=== PATIENT | male | born 1950 | race Caucasian/White ===

== ENCOUNTER 2022-04-29 11:02 | Emergency (ER) | payer MEDICARE, SELFPAY ==
--- NOTE | ~2022-04-29 | XR_ITS ---
XR chest 2V DATE: 04/29/2022 12:15 INDICATION: Cough for 8 weeks TECHNIQUE: 2 views COMPARISON: None FINDINGS: Mild cardiomegaly. Aortic arch calcification. No hilar or mediastinal enlargement. No pulmo nary infiltrate or consolidation. No pulmonary vascular congestion, pleural effusion or pneumothorax. Minimal loss of height and anterior wedging at T12, chronic. Degenerative spurring of the thoracic sp ine. Diffuse osteopenia. IMPRESSION: Mild cardiomegaly. Aortic atherosclerosis No active pulmonary disease Reviewed, dictated and finalized at location [facility]. [facility]
[2022-04-29 11:18] VITALS: BP 121/71; PULSE 68; RESP 16; TEMP 36.4; O2SAT 99
--- NOTE | 2022-04-29 12:35 | ED.URI ---
HPI - URI/Sore Throat General Chief Complaint: Upper Respiratory Infection Stated Complaint: cough Source: patient Limitations: no limitations History of Present Illness HPI Narrative: 71-year-old male presents to [facility] with complaints of barky like cough for the past 8-10 weeks. Patient reports that he is currently taking ciprofloxacin 500 mg twice a day per his primary care provider for urinary symptoms. Patient denies shortness of breath or wheezing. Patient reports that he has gone through 4 bottles of Robitussin with no relief. Patient is a nonsmoker. Patient denies sick contacts. Patient denies recent travel. Patient denies fevers, runny nose, nasal congestion, ear pain or sore throat. Onset (ago): week(s) (8) Able to tolerate fluids by mouth: Yes Exacerbating factors: nothing Relieving factors: nothing Associated symptoms: denies other symptoms Treatments prior to arrival: none Related Data Home Medications Medication Instructions Recorded Confirmed atorvastatin 40 mg tablet 40 mg PO DAILY 04/29/22 04/29/22 carvedilol 3.125 mg tablet 3.125 mg PO BID 04/29/22 04/29/22 ciprofloxacin HCl 500 mg tablet 500 mg PO BID 04/29/22 04/29/22 metformin 500 mg tablet,extended 500 mg PO DAILY 04/29/22 04/29/22 release 24 hr pantoprazole 20 mg tablet,delayed 20 mg PO DAILY 04/29/22 04/29/22 release Allergies Allergy/AdvReac Type Severity Reaction Status Date / Time No Known Allergies Allergy Verified 04/29/22 12:09 Review of Systems Constitutional: Constitutional: Denies chills, Denies fatigue, Denies fever(s) and Denies weakness ENT: Denies vertigo, Denies dizziness and Denies epistaxis Cardiovascular: Cardiovascular: Denies chest pain Respiratory: Respiratory: Reports cough, Denies dyspnea and Denies wheezing Integumentary/Breasts: Skin/Breast: Denies rash Allergic/Immunologic: Allergic/Immunologic: Denies lip swelling, Denies throat swelling, Denies tongue swelling and Denies wheezing PMFSH Social History Social History Smoking status: Never smoker Alcohol intake: never Comments At time of signature, I agree with nursing past medical, surgical, social and family history. There is no relevant family history pertinent to the presenting complaint. Exam Const: General: healthy appearing, no acute distress and alert Nutritional Appearance: well nourished Limitations: no limitations HENMT: Head: normal to inspection Ears: external ears normal Throat: posterior oropharynx normal and uvula midline Neck: Neck: normal visual inspection Resp: Effort & Inspection: normal respiratory effort and not labored Auscultation: clear to auscultation bilaterally, no crackles, no rales, no rhonchi and no wheezes Other: Frequent barky cough noted with inspiration Cardio: Rate: regular rate Rhythm: regular rhythm Heart sounds: no murmurs Skin: General skin exam: normal color Rashes: no rashes Wounds: no wounds Neuro: General: patient oriented x3 Speech: normal speech Gait exam (Neuro): Normal gait present Psych: Affect: normal affect Attitude: cooperative Course Course Level of Care: Express Care Visit Vital Signs Vital signs: Vital Signs Temperature 36.4 C 04/29/22 11:18 Pulse Rate 68 04/29/22 11:18 Respiratory Rate 16 04/29/22 11:18 Blood Pressure 121/71 04/29/22 11:18 Pulse Oximetry 99 04/29/22 11:18 Oxygen Delivery Room Air 04/29/22 11:18 Temperature 36.4 C 04/29/22 11:18 Pulse Rate 68 04/29/22 11:18 Respiratory Rate 16 04/29/22 11:18 Blood Pressure 121/71 04/29/22 11:18 Pulse Oximetry 99 04/29/22 11:18 Oxygen Delivery Room Air 04/29/22 11:18 MDM - URI/Sore Throat MDM Narrative Medical decision making narrative: Insert patient follow-up with primary care provider in the next 48-72 hours to discuss chronic cough. Patient is presenting a biotic as prescribed by her primary car
== END 2022-04-29 12:50 | disposition home or self-care (01) ==
PROVIDERS: Emergency Provider Nurse Practitioner Family; PCP Internal Medicine
DX: J06.9 Acute upper respiratory infection, unspecified (principal); E78.00 Pure hypercholesterolemia, unspecified; I10 Essential (primary) hypertension; K21.9 Gastro-esophageal reflux disease without esophagitis; E11.9 Type 2 diabetes mellitus without complications
CPT/HCPCS: 71046; 99203; G0463